=== PATIENT | male | born 1955 | race American Indian/Alaskan Native ===

== ENCOUNTER 2016-09-04 18:11 | Emergency (ER) | payer OTHER ==
[2016-09-04] MEDS ORDERED: DILAUDID ONE (18:54)
[2016-09-04] MEDS ORDERED: DILAUDID IM ONE (18:58)
[2016-09-04] MEDS ORDERED: MORPHINE IV ONE (19:57)
[2016-09-04 21:15] LABS: Basophils % (Auto) 0.8 % (0.0-1.8); Eosinophils % (Auto) 2.4 % (0.0-4.3); Hematocrit 32.4 % (35.5-45.6); Hemoglobin 10.8 gm/dl (11.8-15.2); Mean Corpuscular HGB Conc 33 % (32-34); Mean Corpuscular Hemoglobin 26 pg (28-32); Mean Corpuscular Volume 77 fl (84-94); Platelet Count 265 K/mm3 (140-440); Red Blood Count 4.21 M/mm3 (3.65-5.03); Red Cell Distribution Width 14.7 % (13.2-15.2); White Blood Count 6.7 K/mm3 (4.5-11.0)
[2016-09-04 21:23] LABS: Bilirubin,Urine NEG (Negative); Blood,Urine NEG (Negative); Ketones,Urine NEG (Negative); Leukocyte Esterase,Urine NEG (Negative); Mucus,Urine FEW /HPF; Nitrite,Urine NEG (Negative); Urobilinogen,Urine < 2.0 mg/dL (<2.0); WBC,Urine < 1.0 /HPF (0.0-6.0)
--- NOTE | 2016-09-04 21:23 | Emergency Department Report ---
HPI - General Chief Complaint: Abdominal Pain Time Seen by Provider: 09/04/16 21:06 - [facility] HPI: Room 23 The patient is a 60-year-old male presenting with a chief complaint of abdominal pain. Patient states for 3 months is an intermittent pain in the bilateral groins left flank. The patient states his pain returned today and was severe left testicular pain greater than right and pain in the left flank. EMS to nausea but denies vomiting. Patient does admit to dysuria for several months. Patient denies hematuria. Patient denies any history of fever. The patient was administered pain medication prior to interview and states his pain is currently a /10. Family states the pain was so severe today because the patient to fall and this prompted him to come to the ED. Location: Left flank, groin Duration: Intermittent 3 months Quality: Pain Severity: 04/26 Modifying factors: [see above] Context: [see above] Mode of transportation: [not driving] ED Past Medical Hx - Past Medical History Hx Hypertension: Yes Hx Heart Attack/AMI: Yes Hx Diabetes: Yes Additional medical history: high cholesterol - Family History Family history: no significant - Social History Smoking Status: Never Smoker Substance Use Type: None - Medications Home Medications: Home Medications Medication Instructions Recorded Confirmed Last Taken Type HYDROcodone/APAP 5-325 [[place] 1 - 2 each PO Q6HR PRN #14 tablet 09/04/16 Unknown Rx 5/325] Promethazine [Phenergan TAB] 25 mg PO Q6HR PRN #20 tab 09/04/16 Unknown Rx ED Review of Systems ROS: Stated complaint: ABD PAIN Other details as noted in HPI Comment: All other systems reviewed and negative Constitutional: denies: chills, fever Eyes: denies: eye pain, eye discharge, vision change ENT: denies: ear pain, throat pain Respiratory: denies: cough, shortness of breath, wheezing Cardiovascular: denies: chest pain, palpitations Endocrine: no symptoms reported Gastrointestinal: abdominal pain, nausea. denies: vomiting Genitourinary: dysuria, testicular pain Musculoskeletal: back pain. denies: joint swelling, arthralgia Skin: denies: rash, lesions Neurological: denies: headache, weakness, paresthesias Psychiatric: denies: anxiety, depression Hematological/Lymphatic: denies: easy bleeding, easy bruising Physical Exam - Physical Exam Vital Signs: Vital Signs 09/04/16 09/04/16 18:23 20:05 Temperature 98.6 F Pulse Rate 88 Respiratory 16 20 Rate Blood Pressure 143/81 O2 Sat by Pulse 98 Oximetry Physical Exam: GENERAL: The patient is well-developed well-nourished male lying on stretcher not appear to be in acute distress. [] HEENT: Normocephalic. Atraumatic. Extraocular motions are intact. Patient has moist mucous membranes. NECK: Supple. Trachea midline CHEST/LUNGS: Clear to auscultation. There is no respiratory distress noted. HEART/CARDIOVASCULAR: Regular. There is no tachycardia. There is no gallop rub or murmur. ABDOMEN: Abdomen is soft, with mild discomfort to palpation in the left lower quadrant. Patient has normal bowel sounds. There is no abdominal distention. SKIN: There is no rash. There is no edema. There is no diaphoresis. NEURO: The patient is awake, alert, and oriented. The patient is cooperative. The patient has normal speech MUSCULOSKELETAL: There is no evidence of acute injury. ED Course Vital Signs 09/04/16 09/04/16 18:23 20:05 Temperature 98.6 F Pulse Rate 88 Respiratory 16 20 Rate Blood Pressure 143/81 O2 Sat by Pulse 98 Oximetry - Consultations Consultation #1: 09/04/16 22:24 [facility] 09/04/16 23:11 Case discussed with [facility] physician-she states the patient's creatinine baseline ranges from 3.1-3.5. The patient has canceled multiple appointments with his filling station attendant. She recommends he contact the filling station attendant/ [facility] to reschedule an appointment. She will schedule the patient for an appointment with his primary physician this week and call back with that date ED Medical Decision Making - Lab Data Result diagrams: 09/04/16 20:00 09/04/16 20:00 Laboratory Tests 09/04/16 09/04/16 09/04/16 20:00 20:00 20:00 WBC 6.7 RBC 4.21 Hgb 10.8 L Hct 32.4 L MCV 77 L MCH 26 L MCHC 33 RDW 14.7 Plt Count 265 Lymph % (Auto) 14.9 Boyle % (Auto) 7.4 H Eos % (Auto) 2.4 Baso % (Auto) 0.8 Lymph # 1.0 L Boyle # 0.5 Eos # 0.2 Baso # 0.1 Seg Neutrophils % 74.5 H Seg Neutrophils # 5.0 Sodium 139 Potassium 3.6 Chloride 102.1 Carbon Dioxide 19 L Anion Gap 22 BUN 35 H Creatinine 3.4 H Estimated GFR 23 BUN/Creatinine Ratio 10.29 Glucose 97 Calcium 8.7 Urine Color Straw Urine Turbidity Clear Urine pH 7.0 Ur Specific [place] 1.009 Urine Protein 100 mg/dl Urine Glucose (UA) Neg Urine Ketones Neg Urine Blood Neg Urine Nitrite Neg Urine Bilirubin Neg Urine Urobilinogen < 2.0 Ur Leukocyte Esterase Neg Urine WBC (Auto) < 1.0 Urine RBC (Auto) 3.0 Urine Mucus Few - Radiology Data Radiology results: report reviewed (CT abdomen and pelvis, testicular ultrasound ), image reviewed (CT abdomen and pelvis, testicular ultrasound) CT abdomen and pelvis (read by radiologist)-low-density focus left kidney a probable cyst although incompletely characterized. Enlarged prostate. Degenerative changes lumbar spine with marked disc space narrowing at L3-L4 Testicular ultrasound (read by radiologist)-right epididymal cyst. Otherwise normal study. Testicles demonstrate normal appearance and normal vascular flow [address] [facility] color Doppler evaluation bilaterally. - Differential Diagnosis renal colic, testicular torsion, epididymitis, diverticulitis Critical care attestation.: If time is entered above; I have spent that time in minutes in the direct care of this critically ill patient, excluding procedure time. ED Disposition Clinical Impression: Left flank pain, Lumbar radiculopathy Disposition: DISCHARGED TO HOME OR SELFCARE Is pt being admited?: No Does the pt Need Aspirin: No Condition: Stable Instructions: Flank Pain (ED) Additional Instructions: Return to the emergency department immediately should you develop worsening symptoms, fever, inability to tolerate food or liquid or any other concerns. Prescriptions: HYDROcodone/APAP 5-325 [[place] 5/325] 1 - 2 each PO Q6HR PRN #14 tablet PRN Reason: Pain Promethazine [Phenergan TAB] 25 mg PO Q6HR PRN #20 tab PRN Reason: Nausea Referrals: VEE PENN MD [Referring] - 09/05/16 1:45 pm (You have an appointment with her primary physician at the [facility] on [address] tomorrow at 1:45 PM) Time of Disposition: 23:52
[2016-09-04 21:29] VITALS: BP 171/81
[2016-09-04 21:35] LABS: BUN/Creatinine Ratio 10.29; Calcium 8.7 mg/dL (8.4-10.2); Chloride 102.1 mmol/L (98-107); Potassium 3.6 mmol/L (3.6-5.0)
--- NOTE | 2016-09-04 22:04 | Ultrasound Report ---
FINAL REPORT EXAM: US TESTICULAR DOPPLER COMP HISTORY: testicular pain left greater than right TECHNIQUE: Ultrasound scrotum PRIORS: None. FINDINGS: Right testicle is a 5.0 x 2.1 x 2.6 centimeters. Noted is an epididymal cyst on the right 0.6 centimeters. Left testicle is 4.2 x 1.7 x 2.7 centimeters. There is normal sonographic echogenicity Testicles demonstrate normal appearance and normal vascular flow on pulsed and color Doppler evaluation bilaterally There is no evidence for hydrocele or varicocele IMPRESSION: Right epididymal cyst Otherwise normal study
--- NOTE | 2016-09-04 22:08 | Cat Scan Report ---
FINAL REPORT EXAM: CT ABDOMEN PELVIS WO CON HISTORY: left flank pain TECHNIQUE: CT abdomen and pelvis without contrast PRIORS: None. FINDINGS: No acute abnormality identified in the lung bases. No focal abnormality identified within the liver parenchyma. The spleen demonstrates normal size and attenuation. No pancreatic abnormalities seen. Kidneys demonstrate no evidence of hydronephrosis or nephrolithiasis. No ureteral calculus identified. There is a 0.8 centimeter hypodensity within the left kidney. Incompletely characterized although probable cyst. The adrenal glands are unremarkable. Abdominal aorta is normal in caliber. No pathologically enlarged lymph nodes are identified. No signs of free fluid or free air No evidence of small bowel dilatation. The appendix is identified and is normal in size no adjacent inflammatory change seen. There are multiple diverticula present sigmoid colon. No acute adjacent inflammatory change seen. The prostate is enlarged Urinary bladder is unremarkable. IMPRESSION: Low-density focus left kidney probable cyst although incompletely characterized Enlarged prostate Noted are degenerative changes lumbar spine with marked disc space narrowing at L3-L4.
== END 2016-09-05 00:05 | disposition home or self-care (01) ==
LOC: ED 18:11
DX: R10.30 Lower abdominal pain, unspecified (principal); M54.16 Radiculopathy, lumbar region; I10 Essential (primary) hypertension; I25.2 Old myocardial infarction; E11.9 Type 2 diabetes mellitus without complications; E78.00 Pure hypercholesterolemia, unspecified
CPT/HCPCS: 36415; 74176; 80048; 81001; 85025; 93975; 96372; 96374; 99284; J1170; J2270

== ENCOUNTER 2021-05-07 09:43 | Emergency (ER) | payer OTHER ==
[2021-05-07] MEDS ORDERED: HEPARIN 10,000 UNITS/10 ML VIAL IV ONE (09:45)
[2021-05-07] MEDS ORDERED: CLOPIDOGREL 300 MG TAB PO ONE (09:45)
[2021-05-07] MEDS ORDERED: ASPIRIN 325 MG TAB PO ONE (09:45)
[2021-05-07] MEDS ORDERED: ONDANSETRON 4 MG/2 ML INJ IV ONE (09:46)
[2021-05-07] MEDS ORDERED: fentaNYL 100 MCG/2 ML INJ IV ONE (09:46)
[2021-05-07] MEDS ORDERED: HEPARIN/NS 5000 UNIT/500ML 1,000 ML IR ONE (09:47)
[2021-05-07] MEDS ORDERED: MIDAZOLAM 2 MG/2 ML INJ ONE (09:48)
[2021-05-07] MEDS ORDERED: fentaNYL 100 MCG/2 ML INJ ONE (09:48)
[2021-05-07] MEDS ORDERED: HEPARIN 10,000 UNITS/10 ML VIAL ONE (09:48)
[2021-05-07] MEDS ORDERED: LIDOCAINE (2%) 20 MG/1 ML VIAL 20 ML MDV INFILTRATI ONE (09:48)
--- NOTE | 2021-05-07 09:52 | Emergency Department Report ---
HPI - General Chief Complaint: Chest Pain Time Seen by Provider: 05/07/21 09:44 - [facility] HPI: Charge nurse triage The patient is a 65-year-old male present with a chief complaint of chest pain. Patient states his substernal chest pain began approximate 30 minutes prior to arrival. Prehospital EKG was sent to the hospital prior to the patient's arrival showing ST elevation in leads II, III and aVF and a code STEMI was called ED Past Medical Hx - Past Medical History Hx Hypertension: Yes Hx Heart Attack/AMI: Yes Hx Diabetes: Yes (Diet controlled) Hx Renal Disease: Yes (Peritoneal dialysis) Additional medical history: high cholesterol - Surgical History Additional Surgical History: PD catheter - Family History Family history: no significant - Social History Smoking Status: Never Smoker Substance Use Type: None - Medications Home Medications: Home Medications Medication Instructions Recorded Confirmed Last Taken Type HYDROcodone/APAP 5-325 [[place] 1 - 2 each PO Q6HR PRN #14 tablet 09/04/16 Unknown Rx 5/325] Promethazine [Phenergan TAB] 25 mg PO Q6HR PRN #20 tab 09/04/16 Unknown Rx ED Review of Systems ROS: Stated complaint: STEMI Other details as noted in HPI Constitutional: no symptoms reported Eyes: denies: eye pain ENT: denies: throat pain Respiratory: no symptoms reported Cardiovascular: chest pain Endocrine: no symptoms reported Gastrointestinal: denies: vomiting Musculoskeletal: denies: back pain Neurological: denies: headache Physical Exam - Physical Exam Physical Exam: GENERAL: The patient is well-developed well-nourished male lying on stretcher appearing to be in moderate. [] HEENT: Normocephalic. Atraumatic. Extraocular motions are intact. Patient has moist mucous membranes. NECK: Supple. Trachea midline CHEST/LUNGS: Clear to auscultation. There is no respiratory distress noted. HEART/CARDIOVASCULAR: Regular. There is no tachycardia. There is no gallop rub or murmur. ABDOMEN: Abdomen is soft, nontender. Patient has normal bowel sounds. There is no abdominal distention. SKIN: There is no rash. There is no edema. There is no diaphoresis. NEURO: The patient is awake, alert, and oriented. The patient is cooperative. The patient has no focal neurologic deficits. The patient has normal speech. GCS 15 MUSCULOSKELETAL: There is no evidence of acute injury. ED Course - Consultations Consultation #1: 01/21/22 09:37 Prehospital EKG sent to and discussed with secretary book keeper Dr. Godfrey- code STEMI called ED Medical Decision Making - EKG Data -: EKG Interpreted by Me EKG shows normal: sinus rhythm Rate: normal - EKG Data When compared to previous EKG there are: previous EKG unavailable Interpretation: acute [place] Critical care attestation.: If time is entered above; I have spent that time in minutes in the direct care of this critically ill patient, excluding procedure time. ED Disposition Clinical Impression: STEMI (ST elevation myocardial infarction), Acute chest pain Disposition: 09 ADMITTED INPATIENT Is pt being admited?: Yes Does the pt Need Aspirin: Yes Condition: Serious Instructions: Chest Pain (ED) Time of Disposition: 09:53 (Hospitalist called)
[2021-05-07] MEDS ORDERED: NITROGLYCERIN DRIP 50 MG/250 ML BOTTLE ONE (09:53)
[2021-05-07] MEDS ORDERED: HEPARIN/ 0.45% NACL DRIP 25,000 UNIT/500 ML BAG IV SCH (10:00)
[2021-05-07] MEDS ORDERED: HEPARIN/NS 5000 UNIT/500ML 500 ML IR ONE (10:34)
[2021-05-07 10:39] LABS: Basophils # (Auto) 0.1 K/mm3 (0.0-0.1); Basophils % (Auto) 0.9 % (0.0-1.8); Eosinophils # (Auto) 0.1 K/mm3 (0.0-0.4); Eosinophils % (Auto) 1.1 % (0.0-4.3); Hematocrit 35.7 % (35.5-45.6); Hemoglobin 11.1 gm/dl (11.8-15.2); Lymphocytes # (Auto) 0.7 K/mm3 (1.2-5.4); Lymphocytes % (Auto) 11.5 % (13.4-35.0); Mean Corpuscular HGB Conc 31 % (32-34); Mean Corpuscular Volume 78 fl (84-94); Monocytes # (Auto) 0.8 K/mm3 (0.0-0.8); Platelet Count 259 K/mm3 (140-440)
[2021-05-07 10:41] LABS: Red Cell Distribution Width 20.9 % (13.2-15.2)
[2021-05-07 10:50] LABS: INR 1.31 (0.87-1.13)
[2021-05-07 10:55] LABS: Calcium 9.6 mg/dL (8.4-10.2)
[2021-05-07 10:58] LABS: Partial Thromboplastin Time 146.6 Sec. (24.2-36.6)
[2021-05-07 11:16] LABS: Chol/HDL Ratio 5.12 %
--- NOTE | 2021-05-07 12:26 | Cardiac Catherization Report ---
DATE OF PROCEDURE: 05/07/2021 INDICATIONS: The patient is a pleasant 65-year-old -Turkish gentleman who presents to the hospital with several hours of chest pain, but waxing and waning over the past several weeks, found to have bradycardia, hypotension and inferior ST elevation. STEMI protocol was initiated. He has a history of hypertension, hyperlipidemia, and chronic kidney disease. He also has a neck fracture and is scheduled to undergo neck surgery. He is in a C-collar. PROCEDURE IN DETAIL: The patient was brought to the director of cath lab in an urgent fashion, prepped and draped in sterile fashion. An 8 mL of 2% lidocaine used to anesthetize the right groin. A standard 6-Vincentian sheath placed in right common femoral artery via modified Seldinger technique. Also, a 6-Vincentian sheath placed in the right femoral vein via modified Seldinger technique. A balloon type temporary venous pacemaker placed under fluoroscopic guidance in the right ventricular apex due to significant bradycardia. Based on backup heart rate set at 50, this is functioning normal. We turned our attention to the coronaries. A JL4 catheter was used to engage the left main. No dampening or ventricularization. Cineangiography performed in all projections. JR4 guide used to cross the aortic valve under fluoroscopic guidance. Left ventriculography performed in 30-degree FLORES and 30-degree PRYDEINIG projection via hand injections, catheter flushed. Manual pullback performed with continuous pressure monitoring. Catheter was used to engage the right coronary. No dampening or ventricularization. Cineangiography performed in all projections. At this point, we turned our attention to PCI. The patient was reloaded with Plavix, aspirin and heparin. Abnormal ACT confirmed. We used a [place] wire to cross the lesion without difficulty. FINDINGS: Right coronary with significant thrombus noted in the proximal and mid segment, heavily calcified, JONNY 2 flow, 80-90% stenosis in the mid segment. Left main without significant disease, trifurcates left anterior descending, left circumflex and ramus intermedius. There is an 80% stenosis in the proximal ramus intermedius. Left circumflex is small, nonobstructive disease. LAD is a moderate-sized vessel, courses anterior intergroove, wraps around the apex. LAD heavily calcified, but no occlusive disease. There is an 80% stenosis in the proximal second diagonal, JONNY 3 flow, this is not causal. The culprit is clearly the right coronary. At this point, we turned our attention to PCI. We used a [place] wire to cross the lesion. I used [place]. Multiple passes are made. JONNY 3 flow resulted. We used a 2.0 x 12 balloon to predilate the lesion. Unable to pass a stent. JONNY 3 flow, no dissection. We used a sarahi wire. Again, attempted to pass a stent. Unable to pass a stent due to heavy calcification, JONNY 3 flow, thrombus burden is improved. The patient is chest pain free. At this point, my concern is that the patient likely needs to have rotablator as the vessel was very calcified and has JONNY 3 flow. The patient is watched on the table for some 40 minutes. No further chest pain remained with JONNY 3 flow. Discussed with Interventional Cardiology at [facility]. We will transfer for urgent rotablation and stent placement in the right coronary. Continue with pacemaker. The patient is currently not requiring the pacemaker, though. We will start IV heparin drip. I directly supervised the administration of moderate sedation with fentanyl and Versed from 10:00 a.m. to 11:01 a.m. No immediate complications. CONCLUSIONS: 1. Acute atherothrombotic occlusion of the mid RCA in the milieu of inferior ST elevation myocardial infarction complicated by hypotension, bradycardia and likely RV infarct. 2. Successful mechanical thrombectomy and balloon angioplasty with resumption of JONNY 3 flow, residual stenosis of 20% or so. Unable to deliver stent due to heavy calcification and tortuosity. The patient is now with JONNY 3 flow and chest pain free. 3. Successful temporary venous pacemaker placement. 4. Preserved LV function, estimated at 55-60%. No evidence of aortic stenosis. 5. Normal LVEDP. Continue IV fluids. Continue IV heparin. The patient reloaded with Plavix and aspirin. The patient is now in sinus rhythm, normotensive; JONNY 3 flow, chest pain free. I believe more aggressive measures here are not indicated and the risk likely outweighs the benefit. The patient will be transferred urgently to [facility] for rotablation and stent placement. The results of procedure were explained to the patient and his entire family. All questions were addressed. He is clinically stable at this time. Labs are still pending. TID: [id number] RECEIPT: [id number] ZAK/ABBIE/MIMI
[2021-05-07 13:16] VITALS: BP 80/40
--- NOTE | 2021-05-07 23:38 | Consultation ---
DATE OF CONSULTATION: 05/07/2021 CARDIOLOGY CONSULTATION REASON FOR CONSULTATION: Advice regarding chest pain and STEMI. HISTORY OF PRESENT ILLNESS: The patient is a pleasant 65-year-old -[place]ir[place] gentleman who presents with chest pain for several hours. He has been having chest pain on and off for several weeks, history of hypertension, diabetes, hyperlipidemia, chronic kidney disease, who presents with hypotension, chest pain, inferior ST elevation. A STEMI protocol was initiated. The patient has 10/10 chest tightness. He is hypotensive and bradycardic. PAST MEDICAL HISTORY: As aforementioned. ALLERGIES: No known drug, food or environmental allergies. REVIEW OF SYSTEMS: As per HPI. Diaphoresis, chest pain, shortness of breath, nausea. PHYSICAL EXAMINATION: VITAL SIGNS: Blood pressure was initially systolic 80s/50s with a heart rate in the 50s and sinus. HEENT: Sclerae are anicteric. PERRLA. NECK: Supple, no mass, no JVD. CHEST: Clear to auscultation bilaterally. Good air movement. CARDIAC: Regular S1, S2. ABDOMEN: Soft, nontender, nondistended. Normoactive bowel sounds in 4 quadrants. No mass or bruits. EXTREMITIES: No cyanosis, clubbing, edema. Good peripheral pulses. SKIN: Warm, dry and intact. No rashes. DIAGNOSTIC STUDIES: EKG with inferior ST elevation and bradycardia. LABORATORY DATA: Pending. ASSESSMENT AND PLAN: In summary, the patient is a pleasant 65-year-old -[place]ir[place] gentleman who presents with acute inferior ST elevation complicated by hypotension and bradycardia. STEMI protocol was initiated. The patient was loaded with heparin, aspirin, Plavix, obviously IV fluids were wide open. Further plans contingent on cath results. TID: [id number] RECEIPT: [id number] ZAK/IRVING
--- NOTE | 2021-05-13 12:55 | Electrocardiograph Report ---
[facility] Test Date: 2021-05-07 Test Time: 09:46:03 Pat Name: SENIA MAJANO Department: Room: Gender: M [employer] Vmware Administrator: [email or web address] : [id number] Requested By: SENIA ROGERS Order Number: [id number] Reading MD: Jaleesa Scott Measurements Intervals [place] Rate: 72 P: 26 NM: 158 QRS: 29 QRSD: 76 T: 161 QT: 422 QTc: 463 Interpretive Statements Sinus rhythm Probable LVH with secondary repol abnrm No previous ECG available for comparison Electronically Signed On 05-13-2021 12:54:55 EST by Jaleesa Scott
== END 2021-05-08 02:42 | disposition admitted as inpatient to this hospital (09) ==
LOC: ED 09:43
DX: I21.3 ST elevation (STEMI) myocardial infarction of unspecified site (principal); R07.9 Chest pain, unspecified
CPT/HCPCS: 33210; 36415; 80048; 80061; 84484; 85025; 85610; 85730; 92920; 93005; 93010; 93458; 93799; 96365; 96375; 96376; 99285; C1725; C1757; C1769; C1887; C1894; J1644; J2250; J3010; J3490; Q9967

== ENCOUNTER 2021-05-17 12:06 | Emergency (ER) | payer MEDICARE ==
[2021-05-17] MEDS ORDERED: LACTATED RINGERS 1,000 ML IV ONE (12:16)
--- NOTE | 2021-05-17 12:16 | Emergency Department Report ---
ED Dizziness HPI - General Chief Complaint: Dizziness Stated Complaint: dizziness after BP medication Time Seen by Provider: 05/17/21 12:15 Source: EMS Mode of arrival: Ambulatory Limitations: No Limitations - History of Present Illness Initial Comments: Patient presented by ambulance secondary to dizziness and lightheadedness. He does peritoneal dialysis. He had finished his dialysis this morning. He was sitting down to eat breakfast. He had just taken his usual medications for the morning. He had dizziness that began. He states that he has chronic vertigo and he felt a little vertiginous. He also felt lightheaded. He was checking his blood pressure along and along and his blood pressure was 80s over 40s. That is low for him. He had no chest pain. He did not have any numbness or tingling in 1 side of the body suggestive of stroke. He had no diplopia. He did not have nausea or vomiting. Patient states that he did take his medicines after his blood pressure was low. He is not sure if one of his medicines might have lowered his blood pressure even further. Because he was dizzy and not feeling well, EMS was called. They found the patient to be hypotensive in addition. They did administer some IV fluids in route. Patient has not had any change in his medications or dialysate lately. - Related Data Home Medications Medication Instructions Recorded Confirmed Last Taken Aspirin EC [Ecotrin] 325 mg PO QDAY 05/13/21 05/13/21 Unknown Ferric Citrate (Nf) [Auryxia] 630 mg PO TIDWM 05/13/21 05/13/21 Unknown Meclizine [Antivert] 25 mg PO TID PRN 05/13/21 05/13/21 Unknown Pantoprazole [Protonix TAB] 40 mg PO QDAY 05/13/21 05/13/21 Unknown calcitrioL [Rocaltrol] 0.5 mcg PO BID 05/13/21 05/13/21 Unknown Previous Rx's Medication Instructions Recorded Last Taken Type Aspirin [Aspirin BABY CHEW TAB] 81 mg PO QDAY #30 tab.chew 05/14/21 Unknown Rx AtorvaSTATin [Lipitor] 80 mg PO QHS #30 tablet 05/14/21 Unknown Rx Clopidogrel [Plavix] 75 mg PO QDAY #30 tablet 05/14/21 Unknown Rx ISOSORBIDE MONOnitrate [Imdur ER] 30 mg PO QDAY #30 tablet 05/14/21 Unknown Rx Prazosin 2 mg PO Q12HR #60 capsule 05/14/21 Unknown Rx Metaxalone [Skelaxin] 800 mg PO TID #9 tablet 05/17/21 Unknown Rx Allergies Allergy/AdvReac Type Severity Reaction Status Date / Time No Known Allergies Allergy Verified 05/12/21 23:15 ED Review of Systems ROS: Stated complaint: dizziness after BP medication Other details as noted in HPI Comment: All other systems reviewed and negative Constitutional: denies: fever Eyes: denies: vision change ENT: denies: throat pain Respiratory: denies: cough Cardiovascular: denies: chest pain, palpitations Endocrine: denies: unexplained weight loss Gastrointestinal: denies: abdominal pain Musculoskeletal: denies: back pain Skin: denies: rash Neurological: denies: headache Hematological/Lymphatic: denies: easy bruising ED Past Medical Hx - Past Medical History Hx Hypertension: Yes Hx Heart Attack/AMI: Yes Hx Diabetes: Yes (Diet controlled) Hx Renal Disease: Yes (Peritoneal dialysis) Additional medical history: high cholesterol - Surgical History Additional Surgical History: PD catheter - Family History Family history: hypertension - Social History Smoking Status: Never Smoker - Medications Home Medications: Home Medications Medication Instructions Recorded Confirmed Last Taken Type Aspirin EC [Ecotrin] 325 mg PO QDAY 05/13/21 05/13/21 Unknown History Ferric Citrate (Nf) [Auryxia] 630 mg PO TIDWM 05/13/21 05/13/21 Unknown History Meclizine [Antivert] 25 mg PO TID PRN 05/13/21 05/13/21 Unknown History Pantoprazole [Protonix TAB] 40 mg PO QDAY 05/13/21 05/13/21 Unknown History calcitrioL [Rocaltrol] 0.5 mcg PO BID 05/13/21 05/13/21 Unknown History Aspirin [Aspirin BABY CHEW TAB] 81 mg PO QDAY #30 tab.chew 05/14/21 Unknown Rx AtorvaSTATin [Lipitor] 80 mg PO QHS #30 tablet 05/14/21 Unknown Rx Clopidogrel [Plavix] 75 mg PO QDAY #30 tablet 05/14/21 Unknown Rx ISOSORBIDE MONOnitrate [Imdur ER] 30 mg PO QDAY #30 tablet 05/14/21 Unknown Rx Prazosin 2 mg PO Q12HR #60 capsule 05/14/21 Unknown Rx Metaxalone [Skelaxin] 800 mg PO TID #9 tablet 05/17/21 Unknown Rx ED Physical Exam - General Limitations: No Limitations, Other (Pulse ox noted and normal) General appearance: alert, in no apparent distress - Head Head exam: Present: atraumatic, normocephalic - Eye Eye exam: Present: normal appearance, EOMI. Absent: scleral icterus - ENT ENT exam: Present: normal orophraynx, normal external ear exam - Neck Neck exam: Present: normal inspection. Absent: meningismus - Respiratory Respiratory exam: Present: normal lung sounds bilaterally. Absent: respiratory distress - Cardiovascular Cardiovascular Exam: Present: normal rhythm, tachycardia - GI/Abdominal GI/Abdominal exam: Present: soft. Absent: distended, tenderness - Extremities Exam Extremities exam: Present: normal capillary refill. Absent: calf tenderness - Back Exam Back exam: Absent: CVA tenderness (R), CVA tenderness (L) - Neurological Exam Neurological exam: Present: alert, oriented X3, CN II-XII intact. Absent: motor sensory deficit - Psychiatric Psychiatric exam: Present: normal affect, normal mood - Skin Skin exam: Present: warm, dry ED Course Vital Signs 05/17/21 05/17/21 05/17/21 12:12 12:54 12:55 Temperature 97.8 F 98.7 F Pulse Rate 103 H 103 H 103 H Respiratory 16 18 12 Rate Blood Pressure Blood Pressure 124/73 127/77 [Right] O2 Sat by Pulse 99 99 99 Oximetry 05/17/21 05/17/21 05/17/21 13:00 13:16 13:30 Temperature Pulse Rate 101 H 96 H 95 H Respiratory 13 16 8 L Rate Blood Pressure 91/68 91/68 113/71 Blood Pressure [Right] O2 Sat by Pulse 100 94 99 Oximetry 05/17/21 05/17/21 05/17/21 13:46 14:00 14:09 Temperature Pulse Rate 98 H 96 H Respiratory 9 L 18 Rate Blood Pressure 113/71 123/89 Blood Pressure [Right] O2 Sat by Pulse 100 98 99 Oximetry 05/17/21 14:12 Temperature Pulse Rate 96 H Respiratory Rate Blood Pressure Blood Pressure [Right] O2 Sat by Pulse Oximetry - Reevaluation(s) Reevaluation #1: 05/17/21 12:16 EMS was met. Labs were ordered. Old records noted. Reevaluation #2: 05/17/21 14:28 EKG was noted. ED Medical Decision Making - Lab Data Result diagrams: 05/17/21 14:07 Rhythm strip: Sinus tachycardia without ectopy per monitor observe 10 seconds. - EKG Data -: EKG Interpreted by Me - EKG Data 05/17/21 14:28 EKG shows sinus tachycardia 103. Intervals are normal including a QRS of 87 and a QT corrected of 1-29. Patient has no ST elevation to suggest STEMI. There is T wave inversion in leads I and aVL as well as V4 through V6. Patient has poor R wave progression. When compared to prior EKG from 2 days ago, R wave progression has worsened. 05/17/21 14:29 Critical Care Time: No Critical care attestation.: If time is entered above; I have spent that time in minutes in the direct care of this critically ill patient, excluding procedure time. ED Disposition Clinical Impression: Lightheaded, Transient hypotension, ESRD on dialysis, Muscle spasm Sciatic nerve pain Qualifiers: Laterality: left Qualified Code(s): M54.32 - Sciatica, left side Disposition: 01 HOME / SELF CARE / HOMELESS Is pt being admited?: No Condition: Stable Instructions: Hypotension, [id number], Radicular Pain, Sciatica, Muscle Cramps and Spasms, [id number] Additional Instructions: Check your blood pressure before taking your medication. If your blood pressure is low, do not take medicine that would lower your blood pressure such as Imdur. Return for problems. Follow-up with your regular doctor for recheck. Continue home medication otherwise. Prescriptions: Metaxalone [Skelaxin] 800 mg PO TID #9 tablet Referrals: PRIMARY CARE, [Primary Care Provider] - 3-5 Days
[2021-05-17] MEDS ORDERED: diazePAM 5 MG TAB PO ONE (13:55)
[2021-05-17 16:36] VITALS: BP 134/83
--- NOTE | 2021-05-19 10:11 | Electrocardiograph Report ---
[facility] Test Date: 2021-05-17 Test Time: 14:05:03 Pat Name: SENIA MAJANO Department: Room: Gender: M [employer]liance [employer] Supervisor: KENDRICK : 1955 Requested By: JESSICA HERNANDEZ Order Number: [id number] Reading MD: Jaleesa Scott Measurements Intervals [place] Rate: 103 P: 50 MI: 163 QRS: 15 QRSD: 87 T: 166 QT: 328 QTc: 429 Interpretive Statements Sinus tachycardia Probable anterior infarct, age indeterminate Left ventricle hypertrophy with repolarization abnormalities of LVH Compared to ECG 05/14/2021 11:24:35 No significant change Electronically Signed On 05-19-2021 10:11:15 EST by Jaleesa Scott
== END 2021-05-17 16:59 | disposition home or self-care (01) ==
LOC: ED 12:06
DX: R42 Dizziness and giddiness (principal); I95.89 Other hypotension; M62.838 Other muscle spasm; M54.32 Sciatica, left side; E11.22 Type 2 diabetes mellitus with diabetic chronic kidney disease; I12.0 Hypertensive chronic kidney disease with stage 5 chronic kidney disease or end stage renal disease; N18.6 End stage renal disease
CPT/HCPCS: 36415; 80048; 93005; 93010; 96360; 96361; 99284; J7120

== ENCOUNTER 2021-07-30 09:39 | Day surgery (SDC) | payer MEDICARE, MEDICAID ==
[2021-07-30 10:39] LABS: Basophils # (Auto) 0.1 K/mm3 (0.0-0.1); Basophils % (Auto) 0.7 % (0.0-1.8); Eosinophils # (Auto) 0.1 K/mm3 (0.0-0.4); Eosinophils % (Auto) 1.2 % (0.0-4.3); Hematocrit 28.8 % (35.5-45.6); Hemoglobin 9.6 gm/dl (11.8-15.2); Lymphocytes # (Auto) 1.2 K/mm3 (1.2-5.4); Lymphocytes % (Auto) 15.4 % (13.4-35.0); Mean Corpuscular HGB Conc 33 % (32-34); Mean Corpuscular Volume 84 fl (84-94); Monocytes # (Auto) 0.9 K/mm3 (0.0-0.8); Platelet Count 309 K/mm3 (140-440); Red Blood Count 3.44 M/mm3 (3.65-5.03); Red Cell Distribution Width 15.4 % (13.2-15.2)
[2021-07-30 11:00] LABS: Calcium 11.9 mg/dL (8.4-10.2)
[2021-07-30] MEDS ORDERED: SODIUM CHLORIDE 0.9% 1000 ML 1,000 ML IV SCH (11:00)
[2021-07-30] MEDS ORDERED: HYDROmorphone 1 MG/1 ML INJ IV SCH (11:00)
[2021-07-30 11:47] LABS: Partial Thromboplastin Time 33.4 Sec. (24.2-36.6)
[2021-07-30] MEDS ORDERED: LIDOCAINE MPF (2%) 20 MG/1 ML VIAL 5 ML ONE (12:01)
[2021-07-30] MEDS ORDERED: HYDROmorphone 1 MG/1 ML INJ ONE (12:01)
[2021-07-30] MEDS ORDERED: MIDAZOLAM 2 MG/2 ML INJ ONE (12:01)
--- NOTE | 2021-07-30 12:18 | Anesthesia Day of Surgery ---
Anesthesia Day of Surgery - Day of Surgery Patient Examined: Yes Patient H&P Reviewed: Yes Patient is NPO: Yes
--- NOTE | 2021-07-30 12:22 | Anesthesia Consultation ---
Anesthesia Consult and Med Hx Date of service: 07/30/21 - Airway Anesthetic Teeth Evaluation: Dentures, Edentulous ROM Head & Neck: Adequate Mental/Hyoid Distance: Adequate Mallampati Class: Class II Intubation Access Assessment: Good - Pre-Operative Health Status ASA Pre-Surgery Classification: ASA3 Proposed Anesthetic Plan: MAC - Pulmonary Hx Smoking: No Hx Sleep Apnea: No - Cardiovascular System Hx Hypertension: Yes Hx Coronary Artery Disease: Yes Hx Heart Attack/AMI: Yes (05/07/2021) Hx Valvular Heart Disease: Yes Hx Peripheral Vascular Disease: Yes (resting leg pain) - Central Nervous System Hx Back Pain: Yes Hx Psychiatric Problems: No - Gastrointestinal Hx Gastroesophageal Reflux Disease: No - Endocrine Hx Renal Disease: Yes (Peritoneal dialysis) Hx End Stage Renal Disease: Yes Hx Non-Insulin Dependent Diabetes: Yes - Hematic Hx Anemia: Yes Hx Sickle Cell Disease: No - Other Systems Hx Cancer: No Hx Obesity: No - Additional Comments Anesthesia Medical History Comments: Echo 05/13/2021-EF 55 to 60%, moderate LVH. Right ventricular systolic function is normal. Moderate mitral annular calcification. Posterior leaflet moderate calcified. Trace to mild mitral regurgitation. TTE (05/10/21): Moderately increased left ventricular wall thickness. Left ventricular ejection fraction is 65-70%. Aortic valve is not well visualized, sclerotic and thickened. Trace mitral valve regurgitation. Trace aortic valve insufficiency. There is moderately increased filling pressure consistent with grade 2 diastolic dysfunction. The aortic valve max velocity is 3.06 m/s. The peak gradient is 37.4 mmHg with a mean gradient of 21.4 mmHg, the left ventricle outflow tract measures 2.06 cm. THEO (VTI) is 2.67 cm with AVAi (VTI) of 1.44 cm/m. The estimated right ventricular systolic pressure is normal at 30.0 mmHg. [1] [2]. [facility] 05/07/2021- found 90% stenosis of RCA s/p PCI with MARTIN x2 to proximal and mid RCA. He also has significant stenosis of LCx; however, per IC, unable to stent LCx lesion given difficult location and risk of obstructing Left Main artery. Heavily calcified prox and mid distal RCA, s/p rotational therectomy 1.5 wong Successful IVUS-guided PCI with MARTIN to prox, mid distal RCA
[2021-07-30] MEDS ORDERED: NITROGLYCERIN DRIP 50 MG/250 ML BOTTLE ONE (12:30)
[2021-07-30] MEDS ORDERED: SODIUM CHLORIDE 0.9% 1000 ML 1,000 ML ONE (12:30)
[2021-07-30] MEDS ORDERED: VERAPAMIL 5 MG/2 ML INJ ONE (12:31)
[2021-07-30] MEDS ORDERED: HEPARIN/NS 5000 UNIT/500ML 1,000 ML IR ONE (12:38)
[2021-07-30] MEDS ORDERED: LIDOCAINE (1%) 10 MG/1 ML VIAL 20 ML MDV ONE (12:39)
[2021-07-30] MEDS ORDERED: ceFAZolin/Water 2 GM/20 ML 2 GM/20 ML SYRINGE IV ONE (12:39)
[2021-07-30] MEDS: HEPARIN 10,000 UNITS/10 ML VIAL ONE ×3 (12:51→14:14)
[2021-07-30] MEDS ORDERED: NITROGLYCERIN 600 MCG/3 ML SYRINGE ART-SHEATH ONE (14:38)
--- NOTE | 2021-07-30 14:53 | Short Stay Summary ---
Short Stay Documentation Date of service: 07/30/21 - History Principal diagnosis: Bilateral lower extremity rest pain H&P: obtained from office - Allergies and Medications Current Medications: Allergies No Known Allergies Allergy (Verified 05/12/21 23:15) Home Medications Medication Instructions Recorded Confirmed Last Taken Type Aspirin EC [Ecotrin] 325 mg PO QDAY 05/13/21 07/30/21 07/30/21 History 1 tab Ferric Citrate (Nf) [Auryxia] 630 mg PO TIDWM 05/13/21 07/30/21 07/29/21 History 3 tabs Pantoprazole [Protonix TAB] 40 mg PO QDAY 05/13/21 07/30/21 07/29/21 History 1 tab ISOSORBIDE MONOnitrate [Imdur ER] 30 mg PO QDAY #30 tablet 05/14/21 07/30/21 07/29/21 Rx 1 tab Clopidogrel [Plavix] 75 mg PO QDAY #30 tablet 07/30/21 Unknown Rx Cyclobenzaprine [Flexeril 10 MG 10 mg PO PRN 07/30/21 07/30/21 07/29/21 History TAB] 1 tab Folic Acid/Vit B Complex and C 1 tab PO DAILY 07/30/21 07/30/21 07/29/21 History [Dialyvite 800 Tablet] 1 tab Metoprolol [Lopressor] 12.5 mg PO BID 07/30/21 07/30/21 07/30/21 08:30 History 12.5 mg Ondansetron (Nf) [Zofran TAB] 8 mg PO Q8HR PRN 07/30/21 07/30/21 Unknown History cilostazoL [Pletal] 50 mg PO BID 07/30/21 07/30/21 07/30/21 08:30 History 1 tab hydrOXYzine HCL [Atarax] 25 mg PO Q6HR PRN 07/30/21 07/30/21 07/29/21 History 2 tab oxyCODONE /ACETAMINOPHEN [Percocet 1 tab PO Q6HR PRN #25 tablet 07/30/21 Unknown Rx 5/325] Active Medications Hydromorphone HCl (Hydromorphone 1 Mg/1 Ml Inj) 0.5 mg IV ONCE@1100 JOSE Stop: 07/30/21 16:00 Last Admin: 07/30/21 11:27 Dose: 0.5 mg Sodium Chloride (Nacl 0.9% 1000 Ml) 1,000 mls @ 42 mls/hr IV DIRECT JOSE Last Admin: 07/30/21 11:34 Dose: 42 mls/hr - Brief post op/procedure progress note Date of procedure: 07/30/21 Pre-op diagnosis: Bilateral lower extremity rest pain Post-op diagnosis: same Procedure: Left lower extremity revascularization Anesthesia: MAC Surgeon: NUHA REAL Estimated blood loss: minimal Pathology: none Condition: stable - Disposition Condition at discharge: Good Disposition: 01 HOME / SELF CARE / HOMELESS Short Stay Discharge Plan Activity: advance as tolerated Weight Bearing Status: Weight Bear as Tolerated Diet: regular Wound: keep clean and dry Follow up with: ALEJANDRA STEWART MD [Primary Care Provider] - 7 Days Prescriptions: oxyCODONE /ACETAMINOPHEN [Percocet 5/325] 1 tab PO Q6HR PRN #25 tablet PRN Reason: Pain Clopidogrel [Plavix] 75 mg PO QDAY #30 tablet
--- NOTE | 2021-07-30 15:03 | Operative Report ---
Operative Report Operative Report: Exam: Left lower extremity revascularization-tibial Clinical indication: Patient with a history of bilateral lower extremity rest pain left greater than right with multifocal occlusion in his tibial vessels noted on ultrasound and diagnostic angiogram Date: 07/30/2021 Procedure: Following an explanation of the risks, benefits and alternatives; written informed consent was obtained. The patient was brought to the angiographic suite and placed in supine position on the examination table. Initial ultrasound evaluation of his right groin demonstrated a patent right common femoral artery. The patient's right groin was prepped and draped in the usual sterile fashion. 1% lidocaine was used for anesthesia. Under ultrasound guidance, the right common femoral artery was cannulated with a 7 cm 1 gauge needle. A 0.018 guidewire was advanced centrally. The needle was removed and the micro sheath placed. The 0.018 guidewire was exchanged for a 0.035 guidewire under fluoroscopy and the micro sheath exchanged for a 5 Ethiopian sheath under fluoroscopy. An Omni Flush catheter was then advanced over the guidewire and together guidewire catheter advanced to the distal abdominal aorta. The patient has extensive medial calcinosis allowing roadmapping of the vasculature. The bifurcation was then crossed using the catheter and guidewire and together the catheter and guidewire advanced under fluoroscopy to the distal femoral artery on the left. Contrast was injected which demonstrates that there is 20 to 30% stenosis within the popliteal artery, occlusion of the anterior tibial artery 10 cm distal to its origin, occlusion of the posterior tibial artery distal to its origin with multifocal 80 to 90% stenosis within the tibioperoneal trunk and proximal posterior tibial artery. The posterior tibial artery is dominant flow to the foot. The 5 Ethiopian sheath was exchanged for a 6 Ethiopian 90 cm sheath the tip which which was placed in the mid popliteal artery. Initially, attention was turned to the occluded anterior tibial artery. Selective cannulation of the anterior tibial artery was performed using a catheter and guidewire and a variety of catheters and guidewires were used to manipulate the catheter into the mid to distal anterior tibial artery. Ultimately, this would not cross the ankle and a decision was made to attempt retrograde access from occluded dorsalis pedis. The left foot was prepped and draped in the usual sterile fashion. Under ultrasound guidance, a 4 cm 21-gauge needle was advanced into the dorsalis pedis artery. A 0.035 guidewire advanced proximally however, there is a significant narrowing within the distal anterior tibial artery precluding crossing from either antegrade or retrograde approach. At this point, decision was made to revascularize the tibioperoneal trunk and posterior tibial artery. The catheter and guidewire were then directed from the antegrade approach into the posterior tibial artery under fluoroscopy. Contrast was injected to document true luminal positioning. The guidewire was exchanged for a Viper wire and the catheter removed. Atherectomy was then performed using 3 passes of a 1.25 solid CSI atherectomy device. Post atherectomy angioplasty was performed first using a 3 mm x 150 mm balloon insufflated to nominal atmospheres for 1 minute followed by a 4 mm x 150 mm drug-coated balloon insufflated to 2 ignacia for 3 minutes. Post intervention imaging demonstrated brisk flow with improved luminal flow throughout the posterior tibial artery to the foot. With increased flow within the tibioperoneal trunk there is improved flow into the proximal peroneal artery. Attempts to revascularize anterior tibial artery resulted in luminal flow to mid calf within the anterior tibial artery. At this point, the catheters, guidewires and sheaths were removed and hemostasis achieved at the left groin using an Angio-Seal arterial closure device and manual compression. Manual compression was also applied to the dorsalis pedis puncture site on the foot. Sterile dressings were then applied. The patient tolerated the procedure well. There were no immediate postprocedure complications. Sedation was provided by anesthesia services given patient's cardiopulmonary risk factors. Continuous cardiopulmonary monitoring was utilized. Impression: 1) Left lower extremity angiography demonstrating occlusion of the anterior tibial artery distal to its origin, occlusion of the peroneal artery distal to its origin, multifocal 80 to 90% stenosis within the tibioperoneal trunk and proximal posterior tibial artery with dominant flow to the foot from the posterior tibial artery. 2) Revascularization of the tibioperoneal trunk and posterior tibial artery using atherectomy and angioplasty with drug-coated balloon. 3) Attempted revascularization of the anterior tibial artery resulting in luminal flow to the mid to distal calf through the [place] anterior tibial artery. 4) The patient will benefit from future revascularization of either his hibernating peroneal artery or attempts to revascularize the additional portion of the anterior tibial artery
[2021-07-30] MEDS ORDERED: ALUM-MAG HYDROXIDE-SIMETHICONE 200-200-20MG/5ML ORAL LIQD 30 ML PO ONE (16:37)
[2021-07-30] MEDS ORDERED: ALUM-MAG HYDROXIDE-SIMETHICONE 200-200-20MG/5ML ORAL LIQD 30 ML ONE (16:46)
[2021-07-30 16:57] VITALS: BP 159/90
[2021-07-30] MEDS ORDERED: CLOPIDOGREL 75 MG TAB PO SCH (17:00)
--- NOTE | 2021-07-30 18:00 | Post Anesthesia Evaluation ---
- Post Anesthesia Evaluation Patient Participated: Yes Airway Patent: Yes Stable Respiratory Function: Yes Nausea/Vomiting: No Temp > 96.8F: Yes Pain Manageable: Yes Adequeate Hydration: Yes Anesthesia Complications: No Block Receding Appropriately: Not Applicable Patient on Ventilator: No
== END 2021-07-30 17:14 | disposition home or self-care (01) ==
LOC: CATHLABREC 09:39
PROVIDERS: ATTEND Radiology Diagnostic Radiology
DX: I70.213 Atherosclerosis of native arteries of extremities with intermittent claudication, bilateral legs (principal); I12.0 Hypertensive chronic kidney disease with stage 5 chronic kidney disease or end stage renal disease; E11.22 Type 2 diabetes mellitus with diabetic chronic kidney disease; N18.6 End stage renal disease; E11.51 Type 2 diabetes mellitus with diabetic peripheral angiopathy without gangrene; I25.10 Atherosclerotic heart disease of native coronary artery without angina pectoris; M19.90 Unspecified osteoarthritis, unspecified site; D64.9 Anemia, unspecified; Z79.899 Other long term (current) drug therapy; Z79.82 Long term (current) use of aspirin; Z95.5 Presence of coronary angioplasty implant and graft; Z83.3 Family history of diabetes mellitus; Z98.890 Other specified postprocedural states; Z82.49 Family history of ischemic heart disease and other diseases of the circulatory system
CPT/HCPCS: 36415; 37229; 76937; 80048; 82962; 85025; 85610; 85730; C1724; C1725; C1760; C1769; C1887; C2623; J0690; J1170; J1644; J1815; J2250; J2704; J3490; J7030; 96374; Q9967